=== PATIENT | male | born 2005 | race Two or more races ===

== ENCOUNTER 2024-02-17 04:36 | Inpatient (IN) | payer MEDICAID ==
[~2024-02-17] VITALS: Ht 167.6 cm; Wt 65.8 kg
[2024-02-17] MEDS ORDERED: ONDANSETRON HCL/PF 4 MG/2 ML VIAL ONE (04:43)
[2024-02-17] MEDS: ONDANSETRON HCL/PF 4 MG/2 ML VIAL IVP ONE (05:04)
[2024-02-17] MEDS ORDERED: LEVETIRACETAM (500MG) 500 MG/5 ML VIAL IV ONE (05:05)
[2024-02-17] MEDS ORDERED: LORAZEPAM INJ 2 MG/ML VIAL ONE ×2 (05:13→09:39)
[2024-02-17] MEDS: LORAZEPAM INJ 2 MG/ML VIAL IV ONE ×2 (05:15→06:07)
[2024-02-17] MEDS: LEVETIRACETAM (500MG) 500 MG in IV NS 0.9% 100 ML IV SCH (05:16)
[2024-02-17 05:22] LABS: BASOPHILS % (AUTO) 0.1 % (0.0-2.0); EOSINOPHILS % (AUTO) 0.1 % (0.0-6.0); HEMATOCRIT 41 % (39-51); HEMOGLOBIN 14.2 g/dL (13.5-17.5); LYMPHOCYTES # (AUTO) 1.1 K/uL (0.8-4.8); MEAN CORPUSCULAR HEMOGLOBIN 27 PG (26.0-33.0); MEAN CORPUSCULAR HGB CONC 34 g/dl (31.0-36.0); MEAN CORPUSCULAR VOLUME 79 fL (80-96); MONOCYTES # (AUTO) 1.2 K/uL (0.1-1.30); MONOCYTES % (AUTO) 6.8 % (2.0-12.0); NEUTROPHILS # (AUTO) 15.9 K/uL (1.8-8.9); PLATELET COUNT (AUTO) 271 K/uL (150-450); RED BLOOD CELL COUNT(AUTO) 5.26 MIL/uL (4.5-6.0); WHITE BLOOD COUNT (AUTO) 18.2 K/uL (4.3-11.0)
[2024-02-17 05:33] LABS: CALCIUM, SERUM 8.4 mg/dL (8.5-10.1); CREATININE 0.6 mg/dL (0.6-1.3); POTASSIUM 4.4 mmol/L (3.5-5.1)
[2024-02-17 05:35] LABS: INR 1.08 (0.91-1.10); PARTIAL THROMBOPLASTIN TIME 28.4 SEC (24.3-34.3); PROTHROMBIN TIME 11.4 SECS (9.2-11.1)
[2024-02-17 05:39] LABS: ALBUMIN 4.2 g/dL (3.4-5.0); BILIRUBIN,DIRECT 0.3 mg/dL (0.0-0.2); TOTAL PROTEIN, SERUM 7.3 g/dL (6.4-8.2)
[2024-02-17] MEDS ORDERED: ACETAMINOPHEN 325 MG TABLET PO PRN (06:30)
[2024-02-17] MEDS ORDERED: ZOLPIDEM TARTRATE 5 MG TABLET PO PRN (06:30)
[2024-02-17] MEDS ORDERED: MAG HYDROX/AL HYDROX/SIMETH 30 ML UDC PO PRN (06:30)
[2024-02-17] MEDS ORDERED: ONDANSETRON HCL/PF 4 MG/2 ML VIAL IVP PRN (06:30)
[2024-02-17] MEDS ORDERED: Z GUARD REMEDY 4 OZ OINT TP PRN (06:30)
[2024-02-17] MEDS ORDERED: MAGNESIUM HYDROXIDE 30 ML UDC PO PRN (06:30)
[2024-02-17] MEDS: IV NS 0.9% 1,000 ML BAG IV ONE ×2 (06:41→08:55)
[2024-02-17 06:45] LABS: CALCIUM, SERUM 8.9 mg/dL (8.5-10.1); CREATININE 0.6 mg/dL (0.6-1.3); POTASSIUM 4.4 mmol/L (3.5-5.1)
[2024-02-17 07:29] LABS: AMPHETAMINE, URINE NEGATIVE (NEGATIVE); BARBITURATE, URINE NEGATIVE (NEGATIVE); BENZODIAZEPINE, URINE NEGATIVE (NEGATIVE); CANNABINOID, URINE NEGATIVE (NEGATIVE); OPIATE, URINE NEGATIVE (NEGATIVE); PHENCYCLIDINE SCREEN,URINE NEGATIVE (NEGATIVE)
[2024-02-17 07:31] LABS: COCCAINE, URINE POSITIVE (NEGATIVE)
[2024-02-17] MEDS ORDERED: MIDAZOLAM HCL 2 MG/2ML VIAL ONE (08:01)
[2024-02-17] MEDS: MIDAZOLAM HCL 2 MG/2ML VIAL IV ONE (08:55)
[2024-02-17] MEDS: LORAZEPAM INJ 2 MG/ML VIAL IV PRN (09:42)
[2024-02-17 12:17] VITALS: BP 133/79; TEMP 100.6; O2SAT 99
[2024-02-17] MEDS: IV NS 0.9% 1,000 ML IV PRN (12:51)
[2024-02-17] MEDS: ACETAMINOPHEN 650 MG/SUPP.RECT RC PRN (13:06)
[2024-02-17] MEDS: LEVETIRACETAM (500MG) 2,000 MG in IV NS 0.9% 80 ML IV ONE (13:06)
[2024-02-17 16:00] VITALS: BP 135/71; TEMP 100.1; O2SAT 95
[2024-02-17 20:00] VITALS: BP 135/72; TEMP 99.5; O2SAT 95
[2024-02-17] MEDS: LEVETIRACETAM (500MG) 1,000 MG in PREMIX 90 EA IV SCH (20:46)
[2024-02-17] MEDS ORDERED: LEVETIRACETAM (500MG) 500 MG in IV NS 0.9% 100 ML IV SCH (21:00)
[2024-02-18] VITALS: BP 106/57; TEMP 100.4; O2SAT 97
[2024-02-18 04:00] VITALS: BP 107/51; TEMP 99; O2SAT 96
[2024-02-18 07:35] LABS: BASOPHILS % (AUTO) 0.2 % (0.0-2.0); EOSINOPHILS % (AUTO) 0.3 % (0.0-6.0); HEMATOCRIT 45 % (39-51); HEMOGLOBIN 15.4 g/dL (13.5-17.5); LYMPHOCYTES # (AUTO) 1.7 K/uL (0.8-4.8); LYMPHOCYTES % (AUTO) 18.8 % (20.0-44.0); MEAN CORPUSCULAR HEMOGLOBIN 27 PG (26.0-33.0); MEAN CORPUSCULAR HGB CONC 34 g/dl (31.0-36.0); MEAN CORPUSCULAR VOLUME 79 fL (80-96); MONOCYTES # (AUTO) 1.1 K/uL (0.1-1.30); MONOCYTES % (AUTO) 12.2 % (2.0-12.0); NEUTROPHILS # (AUTO) 6.1 K/uL (1.8-8.9); NEUTROPHILS % (AUTO) 68.5 % (43.0-81.0); PLATELET COUNT (AUTO) 248 K/uL (150-450); RED BLOOD CELL COUNT(AUTO) 5.68 MIL/uL (4.5-6.0); RED CELL DISTRIBUTION WIDTH 16.5 % (11.5-15.0); WHITE BLOOD COUNT (AUTO) 8.9 K/uL (4.3-11.0)
[2024-02-18 07:48] LABS: CALCIUM, SERUM 8.7 mg/dL (8.5-10.1); CREATININE 0.7 mg/dL (0.6-1.3); MAGNESIUM 2.2 mg/dL (1.8-2.4); PHOSPHORUS 3.2 mg/dL (2.5-4.9); POTASSIUM 3.6 mmol/L (3.5-5.1)
[2024-02-18 08:00] VITALS: BP 126/68; TEMP 98.6; O2SAT 99
[2024-02-18 09:55] LABS: CALCIUM, SERUM 8.6 mg/dL (8.5-10.1); CREATININE 0.7 mg/dL (0.6-1.3); POTASSIUM 3.7 mmol/L (3.5-5.1)
[2024-02-18 12:00] VITALS: BP 112/64; TEMP 98.1; O2SAT 97
[2024-02-18 13:19] LABS: HIV-1 p24 ANTIGEN NON REACTIVE (NONREACTIVE); HIV-1/2 ANTIBODY NON REACTIVE (NONREACTIVE)
[2024-02-18 15:53] LABS: URINE SODIUM, RANDOM 136 mmol/l (40-220)
[2024-02-18 16:00] VITALS: BP 131/67; TEMP 98.2; O2SAT 96
[2024-02-18 16:09] LABS: APPEARANCE,URINE SLIGHTLY CLOUDY (CLEAR); BILIRUBIN,URINE 1+ (NEGATIVE); BLOOD, URINE 3+ Ery/uL (NEGATIVE); COLOR,URINE YELLOW (YELLOW); KETONES,URINE NEGATIVE (NEGATIVE); LEUKOCYTE ESTERASE ,URINE NEGATIVE (NEGATIVE); NITRITE, URINE NEGATIVE (NEGATIVE); PROTEIN,URINE TRACE mg/dl (NEGATIVE); UGLUCOSE NEGATIVE (NEGATIVE)
[2024-02-18 16:16] LABS: ADD URINE CULTURE NO; BACTERIA,URINE Rare /HPF (None Seen); RBC,URINE TOO NUMEROUS TO COUN /HPF (0-2); SQUAMOUS EPITHELIAL CELL,UR None Seen /HPF (None Seen); WBC,URINE NONE SEEN /HPF (0-3)
[2024-02-18 20:00] VITALS: BP 126/67; TEMP 99.1; O2SAT 100
[2024-02-19] VITALS: BP 120/55; TEMP 99; O2SAT 100
[2024-02-19 04:00] VITALS: BP 112/77; TEMP 98.2; O2SAT 100
[2024-02-19 07:09] LABS: HBSAG SCREEN Negative (Negative); HEPATITIS A AB, IgM Negative (Negative); HEPATITIS B CORE AB, IgM Negative (Negative)
[2024-02-19 07:42] LABS: CALCIUM, SERUM 8.2 mg/dL (8.5-10.1); CREATININE 0.7 mg/dL (0.6-1.3); MAGNESIUM 1.9 mg/dL (1.8-2.4); PHOSPHORUS 3.2 mg/dL (2.5-4.9); POTASSIUM 3.7 mmol/L (3.5-5.1)
[2024-02-19 07:44] LABS: THYROID STIMULATING HORMONE 0.92 uIU/mL (0.358-3.74); URIC ACID 5.5 mg/dL (2.6-7.2)
[2024-02-19 08:00] VITALS: BP 103/80; TEMP 97.5; O2SAT 100
[2024-02-19 12:00] VITALS: BP 129/80; TEMP 98; O2SAT 99
[2024-02-19 16:00] VITALS: BP 130/80; TEMP 97.6; O2SAT 99
[2024-02-19 20:00] VITALS: BP 130/81; TEMP 98.6; O2SAT 100
[2024-02-20] VITALS: BP 130/81; TEMP 98.6; O2SAT 100
[2024-02-20 04:00] VITALS: BP 130/79; TEMP 97.9; O2SAT 98
[2024-02-20 08:00] VITALS: BP 127/73; TEMP 98.4; O2SAT 98
[2024-02-20] MEDS: LEVETIRACETAM (250 MG) 250 MG TABLET PO SCH (08:30)
[2024-02-20 16:00] VITALS: BP 118/74; TEMP 98.2; O2SAT 95
== END 2024-02-20 17:17 | disposition home or self-care (01) | DRG 816 ==
LOC: ER 04:38 → TELE1 10:15 → TELE-TD 10:21 → TELE1 02-19 09:37 → MEDSG1 02-19 13:30
PROVIDERS: ADMIT Internal Medicine; ATTEND Nurse Practitioner Acute Care
DX: T40.5X1A Poisoning by cocaine, accidental (unintentional), initial encounter (principal); G92.8 Other toxic encephalopathy; E87.1 Hypo-osmolality and hyponatremia; G25.3 Myoclonus; R56.9 Unspecified convulsions; D72.829 Elevated white blood cell count, unspecified; F41.9 Anxiety disorder, unspecified; E80.6 Other disorders of bilirubin metabolism; E86.1 Hypovolemia; Y92.009 Unspecified place in unspecified non-institutional (private) residence as the place of occurrence of the external cause; F14.188 Cocaine abuse with other cocaine-induced disorder
CPT/HCPCS: 36415; 70450-TC; 71045-TC; 76700-TC; 80048-TC; 80076-TC; 81001; 82962-TC; 83735-TC; 83935-TC; 84100-TC; 84300-TC; 84443-TC; 84550-TC; 85025-TC; 85730-TC; 87040-TC; 87086-TC; 87806; 92526; 92611-TC; 97112-TC; 97116-TC; 97530-TC; 98960; A4216; A4223; G0378; G0480; J1953; J2060; J2250; J2405; J7030